=== PATIENT | female | born 2005 | race Caucasian/White ===

== ENCOUNTER 2024-12-25 06:13 | Emergency (ER) | payer BC, SELFPAY ==
[2024-12-25 06:31] VITALS: BP 110/69; PULSE 76; RESP 16; TEMP 36.7; O2SAT 100; BMI 24.4
--- NOTE | 2024-12-25 07:19 | CRLHL7_ITS ---
For Patients: As a result of the Cures Act, medical imaging exams and procedure reports are released immediately into your electronic medical record. You may view this report before your referring provider. If you have questions, please contact your health care provider. Indication: Fall. Facial injury. Technique: Routine maxillofacial CT protocol without IV contrast. Comparison: None Findings: Bones: No facial fractures, deformities or bony lesions. Paranasal sinuses: The paranasal sinuses are clear. No air-fluid levels. Nasal cavity: No nasal mass lesions. Mild deviation nasal septum to the left Orbits: The globes are intact. No intra orbital abnormalities. Infratemporal fossa: Normal. Soft tissues: No hematomas. Intracranial contents: Normal visualized intracranial contents. Impression: 1. No facial fractures or deformities. Please note that all CT scans at this facility use dose modulation, iterative reconstruction, and/or weight-based dosing when appropriate to reduce radiation dose to as low as reasonably achievable. Dictated by Bernard Hauser MD @ 12/25/2024 8:44:33 AM (Electronically Signed)
--- NOTE | 2024-12-25 07:49 | ED.GENADULT ---
HPI - General Adult General Chief complaint: Fall/Minor Trauma Stated complaint: Fall, vision temporarily black Time Seen by Provider: 12/25/24 06:41 Source: patient Mode of arrival: ambulatory Limitations: no limitations History of Present Illness HPI narrative: 19-year-old female presents to the emergency department after syncopal episode in her [facility] living [facility]. Denies alcohol or illicit drug intake. She has been feeling a little unwell with loose stools for the last couple of days. She went to the bathroom when she got up she felt a little lightheaded, had a witnessed fainting spell and hit her left brow bone on the ground. She suffered a laceration to her left eyebrow which has been covered with the hydrocolloid dressing, still bleeding. No evidence of seizure activity. Came to pretty quickly, suspects less than 1 minute. Friend attended her aunt thinks she may have had another brief fainting spell again but lasting only a few seconds. She recovered from all of this pretty quickly and other than achiness in the head in the area of injury, denies other systemic symptoms. She has not been running any fevers. She denies any chance of . She reports that she has had lightheaded spells with standing many times over the years, has even discussed these with her operations lieutenant grandfather. She has not had any formal workup and does not believe that she has had an EKG or blood work to look into further details for this. Orthostatic blood pressures and pulses are performed in triage and reviewed, does not meet criteria for orthostasis. She has a little bit of achiness in the upper back/lower neck area from the fall, no pain with movement of the neck. No difficulty swallowing, no difficulty opening and closing her jaw. No abdominal pain. She does have a little bit of achiness in the anterior right knee and right great toe but is able to bear weight and walk. No recent surgeries. Does not use any anticoagulants. States that she does not have any long-term medications or allergies. Past medical history otherwise benign per her report. ROS is notable for the headache, left knee pain, left great toe pain and a laceration to the eyebrow as described above. Related Data Home Medications ?Medication ?Instructions ?Recorded ?Confirmed No Known Home Medications 12/20/24 12/20/24 Allergies Allergy/AdvReac Type Severity Reaction Status Date / Time No Known Drug Allergies Allergy Verified 12/25/24 06:38 PFSH PFSH Family History Father Colon cancer Grandmother Breast cancer Aunt Breast cancer High blood pressure Social History Narrative: Originally from [facility]. 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 Smoking Status: Never smoker Do you use any of these nicotine containing products: None Second hand tobacco smoke exposure: No How often do you have a drink containing alcohol: never AUDIT-C Alcohol total score: 0 Non-prescribed substance use: denies use service: No Exam Const: Vital Signs, click to edit/add: Vital Signs - 24 hr 12/25/24 06:31 Temperature 98.0 F Pulse Rate [Left P ulse Oximeter] 76 Respiratory Rate 16 Blood Pressure [Ri ght Upper Arm] 110/69 Pulse Oximetry 100 Oxygen Delivery Me thod Room Air Documenting provider has reviewed patient's vital signs: yes Common normals: no apparent distress and alert General appearance: well kempt Other: Good historian. No intoxication. Appears well-nourished, well-hydrated. Insightful. Laceration easily noted to the left brow bone, no other signs of obvious facial or head deformity. Extremities move freely without obvious initial deficit on initial survey. Normal speech. HENMT: Other: Nose is slightly crooked, deviated to the left. There is a 3 cm laceration to the left upper eyelid just below the brow bone. Gapes about 1 cm in the center, elliptical shaped. Epidermal and dermal thickness, is still oozing blood. Eyes open and close normally with no signs of deficit but there is some swelling along the left upper orbit and the left lower orbital area. Jaw opens and close normally with no locking, clicking or palpable deformity. There is some tenderness along the left zygomatic arch and swelling as well. Remainder of skull without deformity. Tongue without any signs of recent biting, no signs of dental injury. Eye: Common normals: PERRL and EOMs intact bilaterally Alignment: alignment normal Pupil: PERRL Neck & C-Spine: Common normals: full ROM and no lymphadenopathy General: normal visual inspection Cervical spine: normal cervical lordosis; no cervical spine tenderness Other: Mild tenderness to palpation of levator area bilaterally of upper back/lower neck but no tenderness to the cervical spine itself. Full range of motion with no deficits. No point bony tenderness. Chest: Common normals: inspection of chest normal and palpation of chest normal Resp: Common normals: normal respiratory effort, no use of accessory muscles and clear to auscultation bilaterally Effort & inspection: able to speak in complete sentences Auscultation: clear to auscultation bilaterally Cardio: Common normals: regular rate, regular rhythm, S1 normal heart sound, S2 normal heart sound and no murmurs Rate: regular rate Rhythm: regular rhythm Heart sounds: S1 normal and S2 normal GI: Common normals: Normal to inspection, nondistended, normoactive bowel sounds present, soft to palpation, non-tender, no hepatosplenomegaly and no masses Palpation: soft and no hepatosplenomegaly Back & Pelvis: Common normals: thoracic and lumbar spine normal to inspection Extremity: Other: Superficial abrasion to right anterior knee, patellar tendon area. Normal range of motion of right knee, no swelling, effusion or deformity. Normal strength. Patellar tendon palpably intact. Right foot has some mild tenderness to palpation of the in TP 1st joint. There is no deformity, no swelling. Can bear weight. Flexion and extension are normal. Toe appears normal, nail is normal. Palpation along the body of the 1st metatarsal without tenderness, fully intact. Neuro: Common normals: CN's II-XII intact bilaterally, moves all extremities, no focal motor deficits, no sensory deficits noted and gait normal Sensorium/orientation: alert Speech: speech normal Motor exam: strength 5/5 throughout, no tremor noted and muscle tone normal throughout Psych: Common normals: speech normal Appearance: well kempt Attitude: engaged Activity/motor behavior: appropriate eye contact Speech: normal speech Mood and affect: euthymic mood Attention/concentration: attention grossly intact Memory/cognition: memory grossly intact Insight: insight good Judgement: judgment good Skin: Narrative: Slight abrasion to right knee, several small abrasions along left orbit, 3 cm laceration below left brow bone as stated above. No other obvious areas of injury or bruising. Course Course ED Course: 19-year-old female with history of orthostatic dizziness presenting with syncopal episode. Differential diagnosis including cardiac arrhythmia, cardiomyopathy, acute coronary syndrome, anemia, , dehydration, electrolyte abnormality, intoxication. Is not showing any signs of intoxication at this time. Is not tachycardic nor hypotensive. Is experiencing mild GI symptoms recently and in the setting of underlying similar history, suspect that this was vasovagal. Will place peripheral IV, give 1 L normal saline, Tylenol for pain, CT of the facial bones. Suture laceration. Basic labs to determine if there is electrolyte abnormality, anemia, and other basic sent chills, EKG. Await findings. Procedure: Laceration repair. Verbal consent obtained. Area is cleansed with alcohol wipe and injected with 3 mL of 2% lidocaine without epinephrine with good anesthesia. Using 6 0 nylon suture, in a running subcuticular fashion, 8 total stitches were placed along the length of the 3 cm laceration with excellent cosmetic closure and hemostasis. Knotted, anchored and tied with good visibility in the corners for easier removal. Patient tolerated well. Covered in antibiotic ointment, on to CT. Reevaluation(s) Time of Reevaluation #1: 08:58 Reevaluation #1: Counseled patient on findings. CT does not show any signs of facial fractures. Blood work is all reassuring, as is EKG. Patient is still not experiencing any neurological changes. I have observed her ambulating to the bathroom with good balance. Counseled patient on management and plan from here. First, she will make a follow-up appointment to have the stitches removed in 5 days. She is provided with a tube of Dermabond to take with her to be applied after this subcuticular stitches removed. Vaseline twice daily to minimize scarring. Likely to have symptoms of mild concussion setting in over the next 24 hours. Encouraged to rest today, avoid excessive screen time. Okay to try to return to class tomorrow but no extensive exercise for the next 3 days. Okay to use Tylenol and ibuprofen for headaches. Discussed that she has a likely a mild sprain to her toe, x-ray and further workup not recommended, okay to walk on this. Reassuring blood work and EKG reviewed as well, do not recommend further workup at this time. If she has persistent syncopal spells, would then recommend further workup. Alarm symptoms such as neurological changes, persistent vomiting, seizures, further syncope were reviewed as indications to return to the ED. Written instructions provided. Nurse will apply antibiotic ointment, gauze and tape over sutured area prior to discharge. Vital Signs Vital signs: Initial Vital Signs Temperature 98.0 F 12/25/24 06:31 Temperature Source Temporal Artery Scan 12/25/24 06:31 Pulse Rate 76 12/25/24 06:31 Respiratory Rate 16 12/25/24 06:31 Blood Pressure 110/69 12/25/24 06:31 Blood Pressure Mean 82 12/25/24 06:31 Blood Pressure Position Semi-Fowlers 12/25/24 06:31 Pulse Oximetry 100 12/25/24 06:31 Oxygen Delivery Method Room Air 12/25/24 06:31 Vital Signs Temperature 98.0 F 12/25/24 06:31 Pulse Rate 76 12/25/24 06:31 Respiratory Rate 16 12/25/24 06:31 Blood Pressure 110/69 12/25/24 06:31 Pulse Oximetry 100 12/25/24 06:31 Oxygen Delivery Method Room Air 12/25/24 06:31 Temperature 98.0 F 12/25/24 06:31 Pulse Rate 76 12/25/24 06:31 Respiratory Rate 16 12/25/24 06:31 Blood Pressure 110/69 12/25/24 06:31 Pulse Oximetry 100 12/25/24 06:31 Oxygen Delivery Method Room Air 12/25/24 06:31 Medications Administered Medications: Discontinued Medications Generic Name Dose Route Start Last Admin Trade Name Freq PRN Reason Stop Dose Admin Acetaminophen 1,000 mg 12/25/24 07:38 12/25/24 08:03 Acetaminophen 500 Mg Tablet PO 12/25/24 07:39 Not Given ONCE ONE Sodium Chloride 1,000 mls @ 1,000 mls/hr 12/25/24 07:19 12/25/24 07:55 0.9 % Sodium Chloride 1000 Ml IV 12/25/24 08:18 1,000 mls/hr .Q1H MALIK Administration Medical Decision Making Lab Data Lab results reviewed: Yes I reviewed the patient's lab results Lab results narrative: Labs reassuring. Minimal leukocytosis but no electrolyte abnormalities, dehydration, renal dysfunction. test is negative as expected. No anemia. Labs: Lab Results 12/25/24 Range/Units 07:55 WBC 11.38 H (4.50-11.00) K/uL RBC 4.60 (4.00-5.20) m/uL Hgb 13.1 (12.0-16.0) gm/dL Hct 39.6 (33.0-51.0) % MCV 86 (80-100) fL MCH 29 (26-34) pg MCHC 33 (32-36) gm/dL RDW Coeff of Elier 12.0 (11.5-15.5) % Plt Count 249 (140-440) K/uL Neut % (Auto) 80.7 H (42.0-72.0) % Lymph % (Auto) 11.9 L (20-44) % [place] % (Auto) 6.5 (0.0-11.0) % Eos % (Auto) 0.4 (0.0-7.0) % Baso % (Auto) 0.4 (0.0-3.0) % Neut # (Auto) 9.20 H (1.7-7.0) K/uL Lymph # (Auto) 1.40 (0.90-2.90) K/uL [place] # (Auto) 0.70 (0.00-0.90) K/UL Eos # (Auto) 0.00 (0.00-0.50) K/uL Baso # (Auto) 0.00 (0.00-0.30) K/uL Abs Immat Gran (auto) 0.00 (0.00-0.30) K/uL Imm/Tot Granulo (auto) 0.1 % Sodium 135 (135-149) mmol/L Potassium 4.0 (3.6-5.1) mmol/L Chloride 97 (96-114) mmol/L Carbon Dioxide 27 (20-32) mmol/L Anion Gap 11 (7-15) mEq/L BUN 11 (5-24) mg/dL Creatinine 0.6 (0.5-1.5) mg/dL Estimated Creat Clear 107.43 Estimated GFR 132 ml/min Glucose 96 (60-115) mg/dL Calcium 8.7 (8.4-10.6) mg/dL HCG, Qual Negative (Negative) Imaging Data CT facial bones: Attestation: I have reviewed the pertinent imaging results. My impression: No fractures. Radiologist's impression: Impression: 1. No facial fractures or deformities. Please note that all CT scans at this facility use dose modulation, iterative reconstruction, and/or weight-based dosing when appropriate to reduce radiation dose to as low as reasonably achievable. Dictated by Bernard Hauser MD @ 12/25/2024 8:44:33 AM ECG Data Attestation: I personally reviewed and interpreted this ECG as follows: Prior ECG tracings: not available for review Interpretation: Sinus rhythm with a rate of 68. Normal intervals and axis. No significant ST or T-wave abnormalities. Good R-wave progression, no LVH, Normal EKG. Discharge Plan Discharge Clinical Impression: Facial laceration, Mild closed head injury, Sprain of toe, Syncope Patient Disposition: Home w/ Parent or Adult Condition: Improved Instructions: Syncope (DC), Head Injury (DC) Additional Instructions: As we discussed, there does not seem to be any major signs of severe facial fracture today. This is good news. The sutures that were placed in your upper eyelid will need to be removed. Please make an appointment to have this done Wednesday or Wednesday. Apply Vaseline 2-3 times daily to help keep the suture soft. Please bring this paperwork with you to the appointment that you make for suture removal. A running subcuticular suture was placed with anchor in both corners. To remove this, pull on the suture edge, cutting the not away. Grasp the opposite and of the suture and slowly and gently pull the remaining suture out of the repair. This should pull easily if the opposite not is removed. I would then have you cover this with Dermabond glue for another few days, taking a break from Vaseline while the Dermabond is in place. Once the Dermabond flakes off after a few days, keep applying Vaseline at least twice daily to minimize scarring. You are likely to experience signs of mild concussion from this fall. This will likely be dizziness, vertigo symptoms, headache, fatigue and nausea. Drink lots of fluids, eat salty foods for the next few days. No strenuous exercise for at least 48 hours. I would recommend that you take today off of school. Try to avoid a lot of screen time for the next 48 hours as well. If you have symptoms lasting longer than 72 hours, please make a follow-up appointment in the clinic for further evaluation. The toe injury and knee injuries seem mild, do not need further treatment. These will gradually heal on their own in time. If they are still very bothersome after 2 weeks, please follow-up in the clinic for further treatment. X-ray is not recommended as it would not international exchange coordinator. There does not seem to be any sign of underlying cardiac structural or electrical problem based on your EKG. Unfortunately the syncopal type spells can be common in women. If you continue to have frequent episodes, further workup to look for electrical abnormalities can be performed. There were no glaring signs of severe dehydration, electrolyte abnormalities or severe anemia either. If you have further syncopal spells, seizure, persistent vomiting or stroke-like symptoms, please return to the emergency room in the meantime. Activity Level: Activity as Tolerated Discharge Diet: Regular Prescriptions: No Action No Known Home Medications Follow Up/Referrals: Provider,Not a Local [Primary Care Provider, Family Practice] Stand Alone Forms: [employer] Info Instructions
[2024-12-25 08:13] LABS: Hematocrit* 39.6 % (33.0-51.0); Hemoglobin* 13.1 gm/dL (12.0-16.0); Immature Granulocytes Pct Auto 0.1 %; Mean Corpuscular HGB Conc 33 gm/dL (32-36); Mean Corpuscular Hemoglobin 29 pg (26-34); Mean Corpuscular Volume 86 fL (80-100); RDW Coefficient of Variation % 12.0 % (11.5-15.5); Red Blood Count* 4.60 m/uL (4.00-5.20); White Blood Count* 11.38 K/uL (4.50-11.00)
[2024-12-25 08:18] LABS: Immature Granulocytes Abs Auto 0.00 K/uL (0.00-0.30); Lymphocytes Absolute Auto 1.40 K/uL (0.90-2.90); Slide Review Reflex No
[2024-12-25 08:24] LABS: Chloride* 97 mmol/L (96-114)
[2024-12-25 08:25] LABS: Potassium* 4.0 mmol/L (3.6-5.1); Sodium* 135 mmol/L (135-149)
[2024-12-25 08:27] LABS: Blood Urea Nitrogen* 11 mg/dL (5-24); Creatinine* 0.6 mg/dL (0.5-1.5); Est. Creatinine Clearance* 107.43; Estimated Glomerular Filt Rate 132 ml/min; HCG Qualitative Serum* Negative (Negative)
[2024-12-25 08:28] LABS: Anion Gap 11 mEq/L (7-15); Calcium* 8.7 mg/dL (8.4-10.6); Carbon Dioxide* 27 mmol/L (20-32); Glucose* 96 mg/dL (60-115)
[2024-12-25 09:15] VITALS: BP 106/78; PULSE 68; RESP 16
== END 2024-12-25 09:16 | disposition home or self-care (01) ==
PROVIDERS: Emergency Provider Family Medicine
DX: S80.212A Abrasion, left knee, initial encounter (principal); S01.112A Laceration without foreign body of left eyelid and periocular area, initial encounter; M25.562 Pain in left knee; M79.675 Pain in left toe(s); Z32.02 Encounter for pregnancy test, result negative; W18.39XA Other fall on same level, initial encounter; Y92.214 College as the place of occurrence of the external cause
CPT/HCPCS: 12013; 36415; 70486; 80048; 84703; 85025; 93005; 99284; 99285; J7030